=== PATIENT | male | born 1970 | race Caucasian/White ===

== ENCOUNTER 2021-11-14 00:38 | Emergency (ER) | payer SELFPAY ==
[~2021-11-14] VITALS: Ht 182.9 cm; Wt 90.7 kg
[2021-11-14 01:51] VITALS: BP 136/98
[2021-11-14 03:18] LABS: Amphetamine Screen, Urine NEGATIVE (NEGATIVE); Barbiturate Scree,Urine NEGATIVE (NEGATIVE); Benzodiazephine Screen, Urine NEGATIVE (NEGATIVE); Cocaine Screen, Urine NEGATIVE (NEGATIVE); Opiate Scree,Urine NEGATIVE (NEGATIVE); Phencyclidine Screen, Urine NEGATIVE (NEGATIVE)
[2021-11-14 03:22] LABS: Cannabinoid Screen, Urine NEGATIVE (NEGATIVE)
[2021-11-14 03:23] LABS: Urine Bacteria NONE SEEN /hpf (None Seen); Urine Blood Negative /uL (Negative); Urine Specific Gravity 1.005 (1.001-1.035); Urine WBC <1 /hpf (0 - 3)
== END 2021-11-14 02:59 | disposition left against medical advice (07) ==
LOC: ER 00:38 → EDBD 00:38 → ER 02:59
DX: R45.851 Suicidal ideations (principal); Z53.21 Procedure and treatment not carried out due to patient leaving prior to being seen by health care provider
CPT/HCPCS: 80307; 81001